=== PATIENT | male | born 1965 | race African-American/Black ===

== ENCOUNTER 2018-12-09 12:30 | Inpatient (IN) | payer BC ==
[2018-12-09 16:05] VITALS: BMI 23.6
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
[2018-12-09] MEDS ORDERED: chlordiazePOXIDE HCL 25 MG CAPSULE PO ONE (18:06)
[2018-12-09] MEDS ORDERED: MAGNESIUM CITRATE 300 ML BOTTLE PO PRN (18:06)
[2018-12-09] MEDS ORDERED: NICOTINE POLACRILEX 2 MG GUM BUC PRN (18:06)
[2018-12-09] MEDS ORDERED: ACETAMINOPHEN 325 MG TABLET (FP) PO PRN ×2 (18:06)
[2018-12-09] MEDS ORDERED: hydrOXYzine PAMOATE 25 MG CAPSULE (FP) PO PRN (18:06)
[2018-12-09] MEDS ORDERED: MAGNESIUM HYDROX 2400MG/30ML ORAL SUSPENSION 30 ML CUP PO PRN (18:06)
[2018-12-09] MEDS ORDERED: IBUPROFEN 400 MG TABLET (FP) PO PRN (18:06)
[2018-12-09] MEDS ORDERED: MENTHOL/PHENOL 1 EACH UD MM PRN (18:06)
[2018-12-09] MEDS ORDERED: MAG HYDROX/AL HYDROX/SIMETH 30 ML UNIT-DOSE CUP PO PRN (18:06)
[2018-12-09] MEDS ORDERED: chlordiazePOXIDE HCL 10 MG CAPSULE PO PRN (18:06)
[2018-12-09] MEDS ORDERED: BISMUTH SUBSALICYLATE 524 MG/30 ML UD PO PRN (18:06)
[2018-12-10] MEDS: NICOTINE 14 MG/24 HOURS TOPICAL PATCH TD SCH ×2 (01:24→11:45)
[2018-12-10] MEDS: INSULIN SLIDING SCALE (NOVOLOG) 1 VIAL SQ SCH ×4 (01:24→17:08)
[2018-12-10] MEDS: chlordiazePOXIDE HCL 25 MG CAPSULE PO SCH ×3 (01:25→14:21)
[2018-12-10] MEDS: THIAMINE HCL 100 MG TABLET (FP) PO SCH (01:25)
[2018-12-10] MEDS: metFORMIN HCL 500 MG TABLET (FP) PO SCH ×2 (07:26→17:06)
[2018-12-10 10:13] LABS: ALBUMIN 3.6 g/dl (3.4-5.0); BILIRUBIN,TOTAL 0.6 mg/dL (0.2-1); BLOOD UREA NITROGEN 15.2 mg/dL (7-18); CALCIUM 8.6 mg/dL (8.5-10.1); CREATININE 1.2 mg/dL (0.55-1.3); POTASSIUM 4.5 mmol/L (3.5-5.1); TOT PROT 6.8 g/dl (6.4-8.2)
[2018-12-10 10:24] LABS: HEMATOCRIT 41.8 % (35.4-49); HEMOGLOBIN 14.2 GM/dL (11.7-16.9); MCH 31.3 pg (25.7-33.7); MEAN CELL VOLUME 91.9 fl (80-96); MEAN PLT VOLUME 9.8 fl (7.5-11.1); RBC 4.54 M/mm3 (4.00-5.60); RDW 14.7 % (11.9-15.9); WHITE BLOOD COUNT 8.3 K/mm3 (4.0-10.0)
[2018-12-10 10:39] LABS: PLATELET COUNT 178 K/MM3 (134-434)
[2018-12-10] MEDS ORDERED: ONDANSETRON *ODT* 4 MG TABLET SL PRN (11:07)
[2018-12-10] MEDS: PRENATAL VITAMINS W/ FOLIC ACID TABLET (FP) PO SCH (11:46)
[2018-12-10] MEDS: LISINOPRIL 10 MG TABLET (FP) PO SCH (11:46)
--- NOTE | 2018-12-10 15:00 | PN ---
[facility] CIWA - CIWA Score Nausea/Vomitin Muscle Tremors: 3 Anxiety: 3 Agitation: 3 Paroxysmal Sweats: 3 Orientation: 0-Oriented Tacttile Disturbances: 0-None Auditory Disturbances: 0-None Visual Disturbances: 0-None Headache: 1-Very Mild CIWA-Ar Total Score: 15 S Progress Note (SOAP) Subjective: Angry, agitated, vomit x 1 this morning unwitnessed, nausea, tremor, sweating, interrupted sleep. As per RN, patient refused to get out of bed for his medication and has been harassing his roommate because roommate snores. Patient encouraged to take his medication in which he agreed. Staff to transfer roommate to another room. Objective: 12/10/18 14:58 Last Vital Signs Temp Pulse Resp BP Pulse Ox 97.3 F L 67 18 139/69 12/10/18 14:06 12/10/18 14:06 12/10/18 14:06 12/10/18 14:06 Laboratory Tests 12/10/18 12/10/18 12/10/18 07:50 07:50 07:50 WBC 8.3 RBC 4.54 Hgb 14.2 Hct 41.8 MCV 91.9 MCH 31.3 MCHC 34.0 RDW 14.7 Plt Count 178 MPV 9.8 Sodium 139 Potassium 4.5 Chloride 103 Carbon Dioxide 28 Anion Gap 8 BUN 15.2 Creatinine 1.2 Est GFR (CKD-EPI)AfAm 78.98 Est GFR (CKD-EPI)NonAf 68.14 Random Glucose 217 H Calcium 8.6 Total Bilirubin 0.6 AST 45 H ALT 51 Alkaline Phosphatase 76 Total Protein 6.8 Albumin 3.6 RPR Titer Nonreactive Labs reviewed: glucose 217 (has DM, on metformin) Assessment: 12/10/18 14:59 Withdrawal symptoms Hyperglycemia noted Plan: Continue detox Encouraged PO water intake Encouraged to take medication to help with withdrawal symptoms Hyperglycemia secondary to DMT2: continue diabetic regimen
[2018-12-11] MEDS: MELATONIN 5 MG TABLETS PO PRN ×2 (00:16→22:06)
[2018-12-11] MEDS: chlordiazePOXIDE HCL 25 MG CAPSULE PO SCH (00:17)
[2018-12-11] MEDS: METHOCARBAMOL 500 MG TABLET PO PRN (00:20)
[2018-12-11] MEDS: THIAMINE HCL 100 MG TABLET (FP) PO SCH ×2 (00:44→21:59)
[2018-12-11] MEDS: chlordiazePOXIDE 5 MG CAPSULE PO SCH ×3 (06:16→21:59)
[2018-12-11] MEDS ORDERED: INSULIN SLIDING SCALE (NOVOLOG) 1 VIAL SQ ONE (06:26)
[2018-12-11] MEDS: INSULIN SLIDING SCALE (NOVOLOG) 1 VIAL SQ SCH ×3 (06:29→17:13)
[2018-12-11] MEDS: metFORMIN HCL 500 MG TABLET (FP) PO SCH ×2 (07:03→17:13)
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
[2018-12-11] MEDS: NICOTINE 14 MG/24 HOURS TOPICAL PATCH TD SCH (11:37)
[2018-12-11] MEDS: LISINOPRIL 10 MG TABLET (FP) PO SCH (11:37)
[2018-12-11] MEDS: PRENATAL VITAMINS W/ FOLIC ACID TABLET (FP) PO SCH (11:37)
--- NOTE | 2018-12-11 13:00 | PN ---
S CIWA - CIWA Score Nausea/Vomitin (Stomach Cramping.) Muscle Tremors: 3 Anxiety: 2 Agitation: 0-Normal Activity Paroxysmal Sweats: No Perspiration Orientation: 0-Oriented Tacttile Disturbances: 1-Very Mild Itch/Numbness Auditory Disturbances: 0-None Visual Disturbances: 1-Very Mild Sensitivity Headache: 0-None Present CIWA-Ar Total Score: 10 BHS Progress Note (SOAP) Subjective: Stomach Cramping, Anxious, Tremors. Objective: PATIENT A & O X 3. IN NO ACUTE DISTRESS. 12/11/18 12:58 Vital Signs Temperature 97.2 F L 12/11/18 09:13 Pulse Rate 55 L 12/11/18 09:13 Respiratory Rate 18 12/11/18 09:13 Blood Pressure 103/62 12/11/18 09:13 O2 Sat by Pulse Oximetry (%) Laboratory Tests 12/10/18 12/10/18 12/10/18 07:50 07:50 07:50 WBC 8.3 RBC 4.54 Hgb 14.2 Hct 41.8 MCV 91.9 MCH 31.3 MCHC 34.0 RDW 14.7 Plt Count 178 MPV 9.8 Sodium 139 Potassium 4.5 Chloride 103 Carbon Dioxide 28 Anion Gap 8 BUN 15.2 Creatinine 1.2 Est GFR (CKD-EPI)AfAm 78.98 Est GFR (CKD-EPI)NonAf 68.14 POC Glucometer Random Glucose 217 H Calcium 8.6 Total Bilirubin 0.6 AST 45 H ALT 51 Alkaline Phosphatase 76 Total Protein 6.8 Albumin 3.6 RPR Titer Nonreactive 12/10/18 12/11/18 12/11/18 16:46 06:22 11:31 WBC RBC Hgb Hct MCV MCH MCHC RDW Plt Count MPV Sodium Potassium Chloride Carbon Dioxide Anion Gap BUN Creatinine Est GFR (CKD-EPI)AfAm Est GFR (CKD-EPI)NonAf POC Glucometer 256 249 216 Random Glucose Calcium Total Bilirubin AST ALT Alkaline Phosphatase Total Protein Albumin RPR Titer LABS NOTED. TB /QFT RESULT PENDING. 12/11/18 13:00 Assessment: 12/11/18 12:58 WITHDRAWAL SYMPTOMS. ELEVATED AST LEVEL. HYPERGLYCEMIA. 12/11/18 12:59 Plan: CONTINUE DETOX. INCREASE DAILY PO WATER INTAKE. PRN [place] PO FOR UPSET STOMACH.
[2018-12-11] MEDS: traZODone HCL 100 MG TABLET (FP) PO SCH (21:59)
[2018-12-11] MEDS: busPIRone HCL 10 MG TABLET (FP) PO SCH (21:59)
[2018-12-11] MEDS: RANITIDINE HCL 150 MG TABLET (FP) PO SCH (23:06)
[2018-12-11] MEDS: hydrOXYzine PAMOATE 25 MG CAPSULE (FP) PO PRN (23:06)
[2018-12-12] MEDS ORDERED: chlordiazePOXIDE HCL 10 MG CAPSULE PO PRN
[2018-12-12] MEDS: chlordiazePOXIDE HCL 10 MG CAPSULE PO SCH ×3 (06:53→21:17)
--- NOTE | 2018-12-12 10:50 | PN ---
S CIWA - CIWA Score Nausea/Vomitin-Mild Nausea/No Vomiting Muscle Tremors: 1-None Visible, but [place] Anxiety: 2 Agitation: 2 Paroxysmal Sweats: No Perspiration Orientation: 0-Oriented Tacttile Disturbances: 1-Very Mild Itch/Numbness Auditory Disturbances: 0-None Visual Disturbances: 0-None Headache: 2-Mild CIWA-Ar Total Score: 9 BHS Progress Note (SOAP) Subjective: alert,irritable,anxious,interrupted sleep, Objective: 12/12/18 10:49 Vital Signs Temperature 97.9 F 12/12/18 09:37 Pulse Rate 73 12/12/18 09:37 Respiratory Rate 18 12/12/18 09:37 Blood Pressure 109/76 12/12/18 09:37 O2 Sat by Pulse Oximetry (%) Assessment: 12/12/18 10:49 withdrawal symptom Plan: continue detox,librium regimen,discharge in am
[2018-12-12] MEDS: INSULIN SLIDING SCALE (NOVOLOG) 1 VIAL SQ SCH ×3 (14:10→18:00)
[2018-12-12] MEDS: metFORMIN HCL 500 MG TABLET (FP) PO SCH ×2 (14:12→17:07)
[2018-12-12] MEDS: PRENATAL VITAMINS W/ FOLIC ACID TABLET (FP) PO SCH (14:12)
[2018-12-12] MEDS: NICOTINE 14 MG/24 HOURS TOPICAL PATCH TD SCH (14:12)
[2018-12-12] MEDS: busPIRone HCL 10 MG TABLET (FP) PO SCH ×2 (14:12→21:17)
[2018-12-12] MEDS: LISINOPRIL 10 MG TABLET (FP) PO SCH (14:13)
[2018-12-12] MEDS: RANITIDINE HCL 150 MG TABLET (FP) PO SCH ×2 (14:13→21:16)
[2018-12-12] MEDS: hydrOXYzine PAMOATE 25 MG CAPSULE (FP) PO PRN (17:08)
[2018-12-12] MEDS: traZODone HCL 100 MG TABLET (FP) PO SCH (21:17)
[2018-12-12] MEDS: THIAMINE HCL 100 MG TABLET (FP) PO SCH (21:17)
[2018-12-12] MEDS: MELATONIN 5 MG TABLETS PO PRN (21:17)
[2018-12-12] MEDS: METHOCARBAMOL 500 MG TABLET PO PRN (21:19)
[2018-12-13] MEDS ORDERED: chlordiazePOXIDE HCL 10 MG CAPSULE PO ONE (05:00)
[2018-12-13 07:26] VITALS: BP 102/59; PULSE 60; TEMP 97.9
[2018-12-13] MEDS: INSULIN SLIDING SCALE (NOVOLOG) 1 VIAL SQ SCH (08:00)
--- NOTE | 2018-12-13 09:39 | DS ---
[facility] Detox Discharge Summary Admission Date: 12/09/18 Discharge Date: 12/13/18 - History Present History: Alcohol Dependence, Cannabis Dependence, Cocaine Dependence - Physical Exam Results Vital Signs: Vital Signs Temperature 97.9 F 12/13/18 07:26 Pulse Rate 60 12/13/18 07:26 Respiratory Rate 18 12/13/18 07:26 Blood Pressure 102/59 L 12/13/18 07:26 O2 Sat by Pulse Oximetry (%) Pertinent Admission Physical Exam Findings: pt arrived in withdrawals Laboratory Tests 12/10/18 12/10/18 12/10/18 07:50 07:50 07:50 WBC 8.3 RBC 4.54 Hgb 14.2 Hct 41.8 MCV 91.9 MCH 31.3 MCHC 34.0 RDW 14.7 Plt Count 178 MPV 9.8 Sodium 139 Potassium 4.5 Chloride 103 Carbon Dioxide 28 Anion Gap 8 BUN 15.2 Creatinine 1.2 Est GFR (CKD-EPI)AfAm 78.98 Est GFR (CKD-EPI)NonAf 68.14 POC Glucometer Random Glucose 217 H Calcium 8.6 Total Bilirubin 0.6 AST 45 H ALT 51 Alkaline Phosphatase 76 Total Protein 6.8 Albumin 3.6 RPR Titer Nonreactive 12/10/18 12/11/18 12/11/18 16:46 06:22 11:31 WBC RBC Hgb Hct MCV MCH MCHC RDW Plt Count MPV Sodium Potassium Chloride Carbon Dioxide Anion Gap BUN Creatinine Est GFR (CKD-EPI)AfAm Est GFR (CKD-EPI)NonAf POC Glucometer 256 249 216 Random Glucose Calcium Total Bilirubin AST ALT Alkaline Phosphatase Total Protein Albumin RPR Titer 12/11/18 12/12/18 17:06 16:45 WBC RBC Hgb Hct MCV MCH MCHC RDW Plt Count MPV Sodium Potassium Chloride Carbon Dioxide Anion Gap BUN Creatinine Est GFR (CKD-EPI)AfAm Est GFR (CKD-EPI)NonAf POC Glucometer 305 300 Random Glucose Calcium Total Bilirubin AST ALT Alkaline Phosphatase Total Protein Albumin RPR Titer today pt is aaox3 no s/s of withdrawals noted - Treatment Hospital Course: Detox Protocol Followed, Detoxed Safely, Responded well, Discharged Condition Good, Rehab Referral Accepted - Medication Discharge Medications: Ambulatory Orders Albuterol Sulfate Inhaler - [Ventolin Hfa Inhaler -] 1 - 2 inh PO QID 12/23/15 Ranitidine [Zantac -] 150 mg PO PRN 12/23/15 Zolpidem Tartrate [Ambien] 10 mg PO HS #14 tablet MDD 10 12/24/15 ASA - 81 mg PO DAILY 12/09/18 Buspar - 10 mg PO BID 12/09/18 Drisdol 50,000 iu PO WEEKLY 12/09/18 Folic Acid 1 mg PO DAILY 12/09/18 Gabapentin 600 mg PO TID 12/09/18 Humalog syringe SQ PRN 12/09/18 Lexapro - 10 mg PO DAILY 12/09/18 Lisinopril 10 mg PO DAILY 12/09/18 Metformin HCl 1,000 mg PO BID 12/09/18 Naproxen 500 mg PO BID 12/09/18 Therapeutic-M Tablet 1 tab PO DAILY 12/09/18 Trazodone HCl 100 mg PO PRN 12/09/18 Vistaril - 50 mg PO PRN 12/09/18 Zolpidem Tartrate [Ambien] 1 mg PO HS MDD 10 12/09/18 - Diagnosis (1) Cannabis dependence Current Visit: Yes Status: Chronic (2) Cocaine abuse Current Visit: Yes Status: Chronic (3) Substance induced mood disorder Current Visit: Yes Status: Acute (4) Substance-induced sleep disorder Current Visit: Yes Status: Acute (5) Anxiety disorder Current Visit: Yes Status: Chronic (6) Substance-induced anxiety disorder Current Visit: Yes Status: Ruled-out (7) Alcohol dependence with withdrawal Current Visit: Yes Status: Chronic Qualifiers: Complication of substance-induced condition: uncomplicated Qualified Code(s ): F10.230 - Alcohol dependence with withdrawal, uncomplicated (8) COPD (chronic obstructive pulmonary disease) Current Visit: No Status: Chronic Qualifiers: COPD type: emphysema Emphysema type: panlobular Qualified Code(s): J43.1 - Panlobular emphysema (9) Marijuana dependence Current Visit: No Status: Chronic (10) Nicotine dependence Current Visit: No Status: Chronic Qualifiers: Nicotine product type: cigarettes Substance use status: uncomplicated Qualified Code(s): F17.210 - Nicotine dependence, cigarettes, uncomplicated (11) Insomnia disorder Current Visit: No Status: Suspected Qualifiers: Insomnia type: alcohol-induced Qualified Code(s): F10.982 - Alcohol use, unspecified with alcohol-induced sleep disorder - AMA Did Patient Leave Against Medical Advice: No (referred to tadeo atc)
[2018-12-13] MEDS: PRENATAL VITAMINS W/ FOLIC ACID TABLET (FP) PO SCH (10:22)
[2018-12-13] MEDS: RANITIDINE HCL 150 MG TABLET (FP) PO SCH (10:22)
[2018-12-13] MEDS: busPIRone HCL 10 MG TABLET (FP) PO SCH (10:22)
[2018-12-13] MEDS: LISINOPRIL 10 MG TABLET (FP) PO SCH (10:22)
== END 2018-12-13 11:27 | disposition home or self-care (01) | DRG 774 ==
LOC: YASAS 12:30 → Y6N 18:28
PROVIDERS: ADMIT Surgery; ATTEND Surgery
PROC: HZ2ZZZZ Detoxification Services for Substance Abuse Treatment (ICD-10-PCS; principal; 2018-12-09)
DX: F10.230 Alcohol dependence with withdrawal, uncomplicated (principal); F10.282 Alcohol dependence with alcohol-induced sleep disorder; F12.20 Cannabis dependence, uncomplicated; F14.10 Cocaine abuse, uncomplicated; F17.210 Nicotine dependence, cigarettes, uncomplicated; F19.24 Other psychoactive substance dependence with psychoactive substance-induced mood disorder; F19.280 Other psychoactive substance dependence with psychoactive substance-induced anxiety disorder; F19.282 Other psychoactive substance dependence with psychoactive substance-induced sleep disorder; F41.9 Anxiety disorder, unspecified; E11.65 Type 2 diabetes mellitus with hyperglycemia; J43.1 Panlobular emphysema; R74.0 Nonspecific elevation of levels of transaminase and lactic acid dehydrogenase [LDH]; Z79.84 Long term (current) use of oral hypoglycemic drugs
CPT/HCPCS: 36415; 80053; 82962; 85027; 86480; 86593

== ENCOUNTER 2021-11-23 16:50 | Inpatient (IN) | payer BC ==
[2021-11-23 19:24] VITALS: BMI 19.3
[2021-11-23] MEDS ORDERED: DICYCLOMINE HCL 10 MG CAPSULE PO PRN (20:09)
[2021-11-23] MEDS ORDERED: hydrOXYzine PAMOATE 25 MG CAPSULE (FP) PO PRN (20:09)
[2021-11-23] MEDS ORDERED: ACETAMINOPHEN 325 MG TABLET (FP) PO PRN ×2 (20:09)
[2021-11-23] MEDS ORDERED: IBUPROFEN 400 MG TABLET (FP) PO PRN (20:09)
[2021-11-23] MEDS ORDERED: BENZOCAINE/MENTHOL (CHLORASEPTIC ) LOZENGE MM PRN (20:09)
[2021-11-23] MEDS ORDERED: IBUPROFEN 600 MG TABLET (FP) PO PRN (20:09)
[2021-11-23] MEDS ORDERED: MAGNESIUM CITRATE 300 ML BOTTLE PO PRN (20:09)
[2021-11-23] MEDS ORDERED: NICOTINE 10 MG CARTRIDGE (INHALER) IH PRN (20:09)
[2021-11-23] MEDS ORDERED: MAGNESIUM HYDROX 2400MG/30ML ORAL SUSPENSION 30 ML CUP PO PRN (20:09)
[2021-11-23] MEDS ORDERED: MAG HYDROX/AL HYDROX/SIMETH 30 ML UNIT-DOSE CUP PO PRN (20:09)
[2021-11-23] MEDS ORDERED: ONDANSETRON *ODT* 4 MG TABLET SL PRN (20:09)
[2021-11-23] MEDS ORDERED: NICOTINE POLACRILEX 2 MG GUM BUC PRN (20:09)
[2021-11-23] MEDS ORDERED: LOPERAMIDE HCL 2 MG CAPSULE PO PRN (20:09)
[2021-11-23] MEDS ORDERED: METHOCARBAMOL 500 MG TABLET PO PRN (20:09)
[2021-11-23] MEDS ORDERED: BISMUTH SUBSALICYLATE 524 MG/30 ML PO PRN (20:09)
[2021-11-23] MEDS ORDERED: diazePAM 5 MG TABLET PO PRN (20:16)
[2021-11-23] MEDS ORDERED: ALBUTEROL SO4 HFA INHALER IH PRN (20:36)
[2021-11-23] MEDS ORDERED: INSULIN (NOVOLOG) ASPART 100 UNITS/ML 10ML VIAL ONE (23:49)
[2021-11-23] MEDS: INSULIN SLIDING SCALE (NOVOLOG) 1 VIAL SQ SCH ×2 (23:50→23:51)
[2021-11-23] MEDS: ASPIRIN 81 MG CHEWABLE TABLETS PO SCH (23:50)
[2021-11-23] MEDS: MELATONIN 5 MG TABLETS PO SCH (23:50)
[2021-11-23] MEDS: THIAMINE HCL 100 MG TABLET (FP) PO SCH (23:51)
[2021-11-24] MEDS ORDERED: INSULIN (NOVOLOG) ASPART 100 UNITS/ML 10ML VIAL ONE (07:01)
[2021-11-24] MEDS: INSULIN SLIDING SCALE (NOVOLOG) 1 VIAL SQ SCH ×4 (07:19→23:30)
[2021-11-24] MEDS: LISINOPRIL 5 MG TABLET PO SCH (11:55)
[2021-11-24] MEDS: FOLIC ACID 1 MG TABLET (FP) PO SCH (11:56)
[2021-11-24] MEDS: ASPIRIN 81 MG CHEWABLE TABLETS PO SCH (11:56)
[2021-11-24] MEDS: FAMOTIDINE 20 MG TABLET PO SCH (11:57)
[2021-11-24] MEDS: PRENATAL VITAMINS W/ FOLIC ACID TABLET (FP) PO SCH (11:57)
[2021-11-24 21:43] VITALS: TEMP 97.1
[2021-11-24] MEDS: THIAMINE HCL 100 MG TABLET (FP) PO SCH (23:00)
[2021-11-24] MEDS: MELATONIN 5 MG TABLETS PO SCH (23:40)
[2021-11-25] MEDS: INSULIN SLIDING SCALE (NOVOLOG) 1 VIAL SQ SCH (07:07)
[2021-11-25 10:33] VITALS: BP 141/82; PULSE 99
[2021-11-25] MEDS: PRENATAL VITAMINS W/ FOLIC ACID TABLET (FP) PO SCH (10:33)
[2021-11-25] MEDS: ASPIRIN 81 MG CHEWABLE TABLETS PO SCH (10:34)
[2021-11-25] MEDS: FAMOTIDINE 20 MG TABLET PO SCH (10:34)
[2021-11-25] MEDS: FOLIC ACID 1 MG TABLET (FP) PO SCH (10:34)
[2021-11-25] MEDS: LISINOPRIL 5 MG TABLET PO SCH (10:34)
== END 2021-11-25 10:37 | disposition home or self-care (01) | DRG 774 ==
LOC: YASAS 16:50 → UNDOADMIN 20:52 → Y6N 20:52
PROVIDERS: ADMIT Allergy & Immunology; ATTEND Surgery
PROC: HZ2ZZZZ Detoxification Services for Substance Abuse Treatment (ICD-10-PCS; principal; 2021-11-23)
DX: F10.230 Alcohol dependence with withdrawal, uncomplicated (principal); F14.20 Cocaine dependence, uncomplicated; F17.210 Nicotine dependence, cigarettes, uncomplicated; I10 Essential (primary) hypertension; E11.9 Type 2 diabetes mellitus without complications; J45.909 Unspecified asthma, uncomplicated; R26.2 Difficulty in walking, not elsewhere classified; Z99.89 Dependence on other enabling machines and devices
CPT/HCPCS: 82962; C9803-CS; U0003; U0005